=== PATIENT | male | born 1955 | race Caucasian/White ===

== ENCOUNTER → 2021-03-05 | Day surgery (SDC) | payer BC ==
[~2021-03-05] MED LIST: Lactated Ringers 1,000 ML IV SCH
--- NOTE | 2021-03-05 11:52 | OR ---
DATE OF OPERATION: 03/05/2021 PREOPERATIVE DIAGNOSIS: PERSONAL HISTORY OF PRIOR COLON POLYPS. POSTOPERATIVE DIAGNOSIS: PERSONAL HISTORY OF PRIOR COLON POLYPS. SURGEON: Thony Ayers MD PROCEDURE: TOTAL COLONOSCOPY. ANESTHESIA: MAC. SPECIMEN: None. FINDINGS: Normal colonoscopy. RECOMMENDATIONS: Followup colonoscopy for screening in 10 years or sooner for symptoms. INDICATIONS: This 65-year-old male is due for a followup colonoscopy after having polyps removed on his last scope. DESCRIPTION OF PROCEDURE: After adequate preparation, a colonoscope was inserted into the rectum. This was easily passed all the way to the cecum. Confirmation of the cecum was made by visualization of the ileocecal valve and the appendiceal opening. The bowel prep was excellent. On withdrawal of the scope, no abnormalities were noted. He does not have any recurrent polyps. Anal and rectal examination are also normal. Air was suctioned from the colon and the scope removed. BPB/MODL /[id number]
== END ==
LOC: CC.SDS 07:38
PROVIDERS: ATTEND Surgery
DX: Z12.11 Encounter for screening for malignant neoplasm of colon (principal); I10 Essential (primary) hypertension; I48.0 Paroxysmal atrial fibrillation; I25.10 Atherosclerotic heart disease of native coronary artery without angina pectoris; G47.33 Obstructive sleep apnea (adult) (pediatric); E78.00 Pure hypercholesterolemia, unspecified; F41.9 Anxiety disorder, unspecified; E66.01 Morbid (severe) obesity due to excess calories; N52.9 Male erectile dysfunction, unspecified; R79.89 Other specified abnormal findings of blood chemistry; Z86.010 Personal history of colon polyps; Z68.35 Body mass index [BMI] 35.0-35.9, adult; Z80.42 Family history of malignant neoplasm of prostate
CPT/HCPCS: J7120